=== PATIENT | male | born 1935 | race Caucasian/White ===

== ENCOUNTER 2019-06-30 16:01 | Observation (INO) | payer OTHER ==
[~2019-06-30] VITALS: Ht 188 cm; Wt 75.5 kg
[~2019-06-30 16:01] MED LIST: AMLO5TAB9 PO; ASPI-1181 PO; ATOR40TA71 PO; FURO40TA5 PO; ISOS60TA4 PO; METO100T14 PO; OMEP-50 PO; PHEN100C9 PO; RANO10003 PO
[2019-06-30 16:48] LABS: BASOPHILS % (AUTO) 0.8 % (0.0-5.0); EOSINOPHILS % (AUTO) 6.4 % (0.0-8.0); HEMATOCRIT 35.4 % (42-54); LYMPHOCYTES % (AUTO) 19.1 % (21.0-51.0); MEAN CORPUSCULAR HEMOGLOBIN 31.4 pg (27.0-33.0); MEAN CORPUSCULAR HGB CONC 33.8 g/dL (32.0-36.0); MONOCYTES % (AUTO) 10.2 % (3.0-13.0); NEUTROPHILS % (AUTO) 63.5 % (40.0-77.0); NUCLEATED RED BLOOD CELLS 0.1 % (0.0-0.19); PLATELET COUNT (AUTO) 169 K/uL (130-400); RED BLOOD CELL COUNT(AUTO) 3.81 MIL/uL (4.50-6.20); RED CELL DISTRIBUTION WIDTH 14.1 % (11.0-15.5); WHITE BLOOD COUNT (AUTO) 6.9 K/uL (4.8-10.8)
[2019-06-30 17:04] LABS: CREATININE 1.6 mg/dL (0.5-1.5); POTASSIUM 4.1 mmol/L (3.5-5.1)
[2019-06-30 17:05] LABS: INR 1.05 (0.85-1.15); PARTIAL THROMBOPLASTIN TIME 27.3 SEC (26.3-35.5)
[2019-06-30 17:12] LABS: ALBUMIN 3.1 g/dL (3.5-5.0); BILIRUBIN,TOTAL 0.3 mg/dL (0.2-1.0); TOTAL PROTEIN, SERUM 6.6 g/dL (6.0-8.3)
[2019-06-30] MEDS ORDERED: ACETAMINOPHEN 325 MG TAB ONE ×2 (17:24→22:22)
[2019-06-30] MEDS: NITROGLYCERIN 1GM/1 INCH PACKET TD SCH (18:00)
[2019-06-30] MEDS: ENOXAPARIN SODIUM 60 MG/0.6 ML SQ SCH (18:00)
[2019-06-30] MEDS: FUROSEMIDE 10 MG/ML 4ML VIAL IVP SCH (18:00)
[2019-06-30] MEDS ORDERED: ENOXAPARIN SODIUM 60 MG/0.6 ML SQ ONE (18:39)
[2019-06-30] MEDS ORDERED: NITROGLYCERIN 1GM/1 INCH PACKET TD ONE (18:40)
[2019-06-30] MEDS ORDERED: FUROSEMIDE 10 MG/ML 4ML VIAL ONE (18:40)
[2019-06-30] MEDS ORDERED: IPRATROPIUM/ALBUTEROL SULFATE 3 ML SOLUTION IH ONE (19:11)
[2019-06-30] MEDS ORDERED: ASPIRIN 81MG TAB.CHEW ONE (19:25)
[2019-06-30 20:43] VITALS: BP 161/87
[2019-06-30] MEDS ORDERED: ACETAMINOPHEN 325 MG TAB PO PRN (22:30)
[2019-06-30] MEDS: IPRATROPIUM/ALBUTEROL SULFATE 3 ML SOLUTION IH SCH (22:42)
[2019-07-01] VITALS: BP_SYST 148; BP_SYST 166; BP_DIAS 79; BP_DIAS 87
[2019-07-01] MEDS: NITROGLYCERIN 1GM/1 INCH PACKET TD SCH ×5 (00:04→23:34)
[2019-07-01] MEDS: IPRATROPIUM/ALBUTEROL SULFATE 3 ML SOLUTION IH SCH ×6 (01:34→21:40)
[2019-07-01 04:23] VITALS: BP 169/90
[2019-07-01 04:50] LABS: CREATININE 1.6 mg/dL (0.5-1.5); POTASSIUM 3.7 mmol/L (3.5-5.1); TROPONIN I 0.05 ng/mL (0.00-0.06)
[2019-07-01] MEDS: FUROSEMIDE 10 MG/ML 4ML VIAL IVP SCH ×2 (06:11→17:28)
[2019-07-01] MEDS: ENOXAPARIN SODIUM 60 MG/0.6 ML SQ SCH (06:12)
[2019-07-01 07:53] VITALS: BP 182/82
[2019-07-01] MEDS ORDERED: PANT40TA25 PO (08:04)
[2019-07-01] MEDS ORDERED: PIND10TA2 PO (08:04)
[2019-07-01] MEDS ORDERED: MONT10TA24 PO (08:04)
[2019-07-01 11:45] VITALS: BP 165/96
[2019-07-01] MEDS: ASPIRIN 81MG TAB.CHEW PO SCH (12:14)
[2019-07-01] MEDS ORDERED: LABETALOL HCL 5 MG/ML 20ML VIAL IV PRN (12:30)
[2019-07-01] MEDS ORDERED: HYDRALAZINE HCL 20 MG/ML VIAL IV PRN (12:30)
[2019-07-01] MEDS ORDERED: POTASSIUM CHLORIDE 20MEQ/100ML 100 ML IV PRN (12:30)
[2019-07-01] MEDS ORDERED: MAGNESIUM 2GM PREMIX 50ML 50 ML IV PRN (12:30)
[2019-07-01] MEDS ORDERED: LIDOCAINE HCL-MPF 1% 2ML VIAL IV PRN (12:30)
[2019-07-01] MEDS ORDERED: POTASSIUM CHLORIDE 20 MEQ ERTAB PO PRN (12:30)
--- NOTE | 2019-07-01 13:40 | NUR ---
DC PLAN VISITED WITH PATIENT. PATIENT LIVES WITH SPOUSE. INDEPENDENT ABLE TO PERFORM ADL'S. PATIENT HAS NO SERVICES. WALKER AND CANE. FEELS SAFE TO RETURN HOME. Addendum: 07/01/19 at 1342 by RACHAEL MCGUIRE RN CM Amended: Links added.
--- NOTE | 2019-07-01 14:00 | NUR ---
RD NOTIFICATION Primary diagnosis: CHF. Hx: DM, COPD, HTN, Ischemic Cardiomyopathy. Current diet: Heart Healthy. BMI is 22.9; classified as normal. LMB: 06/29. Skin intact, 2+ pitting edema present on bilateral lower extremities. Meds: Duoneb, Lovenox, Lasix, Asprin. Labs: D-Dimer 1309, BNP 1260, ALB 3.1, BUN 20, CRE 1.6, GFR 44. PO intake: 100% and has good appetite as per nurse. No nausea, vomiting, or diarrhea as per nurse. No difficulty chewing or swallowing. RD recommends to continue current diet, add 1500mLs Fluid Restriction to diet order. RD will continue to monitor and follow up as needed. Please notify RD if any other nutritional concerns arise. Thank you. Addendum: 07/01/19 at [address] RD Amended: Links added.
[2019-07-01] MEDS: PHENYTOIN SODIUM 100 MG ERCAP PO SCH ×2 (16:04→20:10)
[2019-07-01 16:10] VITALS: BP 154/94
[2019-07-01] MEDS ORDERED: ENOXAPARIN SODIUM 40 MG/0.4 ML SYRINGE SQ SCH (18:00)
[2019-07-01 19:41] VITALS: BP 171/94
[2019-07-01] MEDS: POTASSIUM CHLORIDE 10% ELIXIR 20 MEQ/15 ML UDCUP PO PRN ×2 (20:10→20:22)
[2019-07-01] MEDS: RANOLAZINE 500 MG TAB.SR.12H PO SCH (20:11)
[2019-07-02] VITALS: BP 148/79
[2019-07-02] MEDS: IPRATROPIUM/ALBUTEROL SULFATE 3 ML SOLUTION IH SCH ×3 (01:17→10:38)
[2019-07-02 04:06] LABS: CREATININE 1.6 mg/dL (0.5-1.5); POTASSIUM 3.8 mmol/L (3.5-5.1)
[2019-07-02 04:10] VITALS: BP 139/81
[2019-07-02] MEDS: FUROSEMIDE 10 MG/ML 4ML VIAL IVP SCH (06:00)
[2019-07-02] MEDS: NITROGLYCERIN 1GM/1 INCH PACKET TD SCH ×2 (06:01→11:46)
[2019-07-02 07:15] VITALS: BP 154/86
--- NOTE | 2019-07-02 08:00 | NUR ---
AM ASSESSMENT PT LAYING IN BED, WATCHING TV. DAUGHTER @ BEDSIDE. A/O X 3. SOB ON EXERTION. NO DISTRESS NOTED. DENIES CHEST PAIN OR DISCOMFORT. DENIES PALPITATIONS. TELE: SR 60-70s. DENIES N/V AND/OR DIARRHEA. UP W/ASSISTANCE. INSTRUCTED TO CALL FOR ASSISTANCE. CALL REY W/IN REACH.
[2019-07-02] MEDS: PHENYTOIN SODIUM 100 MG ERCAP PO SCH (08:28)
[2019-07-02] MEDS: ASPIRIN 81MG TAB.CHEW PO SCH (08:29)
[2019-07-02] MEDS: RANOLAZINE 500 MG TAB.SR.12H PO SCH (08:33)
[2019-07-02] MEDS ORDERED: ISOSORBIDE MONO 30MG TAB SR PO SCH (09:00)
[2019-07-02] MEDS ORDERED: PINDOLOL 10 MG PO SCH (09:00)
[2019-07-02] MEDS ORDERED: MONTELUKAST SODIUM 10 MG TAB PO SCH (09:00)
[2019-07-02] MEDS ORDERED: PANTOPRAZOLE SODIUM 40 MG TABLET.DR PO SCH (09:00)
[2019-07-02] MEDS ORDERED: TORSEMIDE 20 MG TAB PO SCH (09:15)
[2019-07-02 11:13] VITALS: BP 114/72
--- NOTE | 2019-07-02 12:10 | NUR ---
DISCHARGE TELE JEAN REMOVED. IV DISCONTINUED.
--- NOTE | 2019-07-02 12:15 | NUR ---
DISCHARGE VERBAL & WRITTEN DISCHARGE INSTRUCTIONS REVIEWED & GIVEN TO PT & DAUGHTER. QUESTIONS ENCOURAGED & CLARIFIED. PROPER CARE & MGT FOR CHF REVIEWED. NEW PRESCRIBED MEDICATIONS REVIEWED. PRESCRIPTION GIVEN TO PT. REINFORCED TO PT & DAUGHTER TO STOP TAKING FUROSEMIDE. BOTH STATE UNDERSTANDING. PT TO HAVE BMP DRAWN IN 1 WEEK. PT & FAMILY TO GATHER PERSONAL BELONGINGS. WILL NOTIFY STAFF WHEN READY TO BE TAKEN TO PRIVATE VEHICLE.
--- NOTE | 2019-07-02 12:30 | NUR ---
DISCHARGE PT TAKEN TO PRIVATE VEHICLE BY [facility], ACCOMPANIED BY SPOUSE. NO DISTRESS NOTED.
== END 2019-07-02 12:30 | disposition home or self-care (01) ==
LOC: EDH 16:01 → EDHIP 18:05 → 2CH 19:50
PROVIDERS: ADMIT Internal Medicine; ATTEND Internal Medicine
DX: I13.0 Hypertensive heart and chronic kidney disease with heart failure and stage 1 through stage 4 chronic kidney disease, or unspecified chronic kidney disease (principal); I50.9 Heart failure, unspecified; N18.9 Chronic kidney disease, unspecified; E11.22 Type 2 diabetes mellitus with diabetic chronic kidney disease; E78.5 Hyperlipidemia, unspecified; G40.909 Epilepsy, unspecified, not intractable, without status epilepticus; F10.20 Alcohol dependence, uncomplicated; I25.10 Atherosclerotic heart disease of native coronary artery without angina pectoris; J44.9 Chronic obstructive pulmonary disease, unspecified; Z95.1 Presence of aortocoronary bypass graft; Z87.891 Personal history of nicotine dependence
CPT/HCPCS: 36415 ×3; 71045; 78580; 80048 ×2; 80053; 82550; 83874; 83880; 84484 ×2; 85025; 85378; 85610; 85730; 93005; 93306; 93970; 94640 ×10; 94664; 96372; 96374; 96376 ×2; 99284; A9540; G0378 ×40; J1650 ×3; J1940 ×4